=== PATIENT | female | born 1960 | race Caucasian/White ===

== ENCOUNTER 2022-06-23 08:26 | Outpatient (CLI) | payer BC, SELFPAY ==
[2022-06-23 12:02] LABS: Chloride* 104 mmol/L (96-114); Sodium* 143 mmol/L (135-149)
[2022-06-23 12:05] LABS: Carbon Dioxide* 31 mmol/L (20-32); Cholesterol* 182 mg/dL (90-199); Creatinine* 0.9 mg/dL (0.5-1.5); Estimated Glomerular Filt Rate 72 ml/min
[2022-06-23 12:06] LABS: Blood Urea Nitrogen* 18 mg/dL (7-30); Calcium* 8.9 mg/dL (8.4-10.6); Glucose* 124 mg/dL (60-115); HDL Cholesterol* 62 mg/dL (>=50); LDL Cholesterol Calculated 88 mg/dL (<100); Triglycerides* 160 mg/dL (40-149)
[2022-06-23 12:34] LABS: TSH With Reflex to FT4* 0.138 uIU/mL (0.270-4.200)
[2022-06-23 13:06] LABS: Free T4 Free Thyroxine* 2.61 ng/dL (0.70-1.85)
== END 2022-06-23 08:27 | disposition home or self-care (01) ==
PROVIDERS: Visit Provider Obstetrics & Gynecology
DX: Z01.419 Encounter for gynecological examination (general) (routine) without abnormal findings (principal); N95.0 Postmenopausal bleeding; R53.83 Other fatigue; I10 Essential (primary) hypertension; E83.51 Hypocalcemia; E55.9 Vitamin D deficiency, unspecified; E78.00 Pure hypercholesterolemia, unspecified
CPT/HCPCS: 80048; 80061; 84439; 84443

== ENCOUNTER 2022-06-30 08:23 | Outpatient (CLI) | payer BC, SELFPAY ==
--- NOTE | 2022-06-30 08:45 | CRLHL7_ITS ---
For Patients: As a result of the Century Cures Act, medical imaging exams and procedure reports are released immediately into your electronic medical record. You may view this report before your referring provider. If you have questions, please contact your health care provider. Indication : Postmenopausal bleeding Technique: Sonography of the pelvis was performed. Imaging was performed transvaginally Comparison: None Findings: The uterus measures 6.2 x 2.0 x 2.4 centimeters which is normal. No myometrial mass. The endometrium measures 2 millimeters. This is a normal measurement. It is homogeneous in appearance without focal mass. The ovaries are not visible. However, there was no visible adnexal mass. No free fluid in the cul-de-sac. Impression: Normal appearing uterus. Endometrium normal in appearance and caliber at 2 millimeters. The specific cause of the patient`s postmenopausal bleeding is not determined on this exam. Ovaries not visualized. Dictated by Juan Nolen MD @ 06/30/2022 9:27:24 AM (Electronically Signed)
== END 2022-06-30 08:24 | disposition home or self-care (01) ==
LOC: US 08:24
PROVIDERS: PCP Family Medicine; Visit Provider Obstetrics & Gynecology
DX: N95.0 Postmenopausal bleeding (principal)
CPT/HCPCS: 76830

== ENCOUNTER 2023-04-19 14:10 | Outpatient (CLI) | payer BC, SELFPAY ==
--- NOTE | 2023-04-19 14:40 | CRLHL7_ITS ---
For Patients: As a result of the Century Cures Act, medical imaging exams and procedure reports are released immediately into your electronic medical record. You may view this report before your referring provider. If you have questions, please contact your health care provider. BILATERAL SCREENING MAMMOGRAM WITH COMPUTER-AIDED DETECTION AND TOMOSYNTHESIS TECHNIQUE: CC and MLO views were obtained. These mammographic images have been obtained using full-field digital technique. These mammographic images were interpreted with the benefit of computer-aided detection. Breast tomosynthesis was used in this interpretation. COMPARISON FILM: 03/24/21, 02/05/20, 01/31/19. FINDINGS: There are scattered areas of fibroglandular density. IMPRESSION: There is no radiographic evidence for malignancy. ASSESSMENT: BI-RADS Category 2: Benign RECOMMENDATION: Routine screening mammogram in 1 year. A lay language report of this examination will be provided to the patient. FOREIGN NAVARRO M.D. Diagnostic Radiologist [email or web address] Transcribed: 04/26/2023, 2:[address]/Dictated by: Foreign Navarro MD @ 04/26/2023 9:36:00 AM (Electronically Signed)
== END 2023-04-19 14:11 | disposition home or self-care (01) ==
PROVIDERS: PCP Family Medicine; Visit Provider Obstetrics & Gynecology
DX: Z12.31 Encounter for screening mammogram for malignant neoplasm of breast (principal)
CPT/HCPCS: 77063; 77067

== ENCOUNTER 2023-07-19 16:59 | Emergency (ER) | payer BC, MEDICARE, SELFPAY ==
[2023-07-19 17:03] VITALS: BP 118/75; PULSE 110; RESP 18; TEMP 36.7; O2SAT 96; BMI 25.8
--- NOTE | 2023-07-19 17:49 | ED_ITS ---
HPI - General Adult General Date Seen: 07/19/23 Chief complaint: Laceration/Wound Stated complaint: L hip replaced, possible infection on incision Time Seen by Provider: 07/19/23 17:15 Source: patient, RN notes reviewed and old records reviewed Mode of arrival: ambulatory Limitations: no limitations History of Present Illness HPI narrative: Patient is a 62-year-old woman had had surgery on her left hip on June 13 at [place]. She comes in today for evaluation of her incision. She says she has been doing well, the wound VAC was removed, she has been driving for the past few days. She does not really have pain around the incision but she said her told her that it looks ?really red. She is concerned about possible infection. She has not had any fevers, otherwise getting around okay. She has home physical therapy coming on. Related Data Home Medications Medication Instructions Recorded Confirmed atenolol 100 mg tablet 100 mg PO 06/23/22 06/30/22 azathioprine 50 mg tablet (Imuran) 50 mg PO QDAY 06/23/22 06/30/22 celecoxib 200 mg capsule 200 mg PO BID 06/23/22 06/30/22 cevimeline 30 mg capsule 60 mg PO BID 06/23/22 06/30/22 cholecalciferol (vitamin D3) 25 3,000 unit PO .Bedtime 06/23/22 06/30/22 mcg (1,000 unit) tablet cyclobenzaprine 10 mg tablet 20 mg PO .Bedtime as needed PRN 06/23/22 06/30/22 doxazosin 8 mg tablet 8 mg PO .Bedtime 06/23/22 06/30/22 gabapentin 300 mg capsule 600 mg PO .Bedtime PRN 06/23/22 06/30/22 glimepiride 1 mg tablet 1 mg PO QAM 06/23/22 06/30/22 levothyroxine 150 mcg tablet 150 mcg PO 06/23/22 06/30/22 levothyroxine 175 mcg tablet 175 mcg PO 06/23/22 06/30/22 loratadine 10 mg tablet (Claritin) 10 mg PO QDAY 06/23/22 06/30/22 pantoprazole 20 mg tablet,delayed 20 mg PO QDAY 06/23/22 06/30/22 release pravastatin 40 mg tablet 40 mg PO .Bedtime 06/23/22 06/30/22 ropinirole 0.25 mg tablet 0.25 mg PO BID 06/23/22 06/30/22 tramadol 50 mg tablet 1 mg PO .Bedtime 06/23/22 06/30/22 prednisone 20 mg tablet 5 mg PO 06/30/22 06/30/22 Allergies Allergy/AdvReac Type Severity Reaction Status Date / Time metformin Allergy Intermediate Verified 07/19/23 17:09 aspirin Allergy Mild swelling, Verified 06/30/22 09:50 difficulty breathing erythromycin base Allergy Mild rash, Verified 06/30/22 09:50 breathing problems lisinopril Allergy Mild Cough Verified 06/30/22 09:50 diltiazem Allergy Unknown Verified 06/30/22 09:50 PFSH PFS Medical History Gastroenteritis History of endometriosis History of herpes zoster History of oral contraceptive use History of pneumonia History of renal calculi 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 Lesion of labia Nulliparity Pericardial effusion Urinary tract infection Surgical History History of arthroscopic surgery of shoulder History of bilateral breast reduction surgery (1998) History of breast biopsy (2001) History of cholecystectomy (2005) History of colonoscopy (2005) History of discectomy (1997) History of esophagogastroduodenoscopy (EGD) (2007) History of eye surgery (2004) History of foot surgery History of joint surgery History of lithotripsy History of local excision of skin lesion History of surgical procedure History of thyroid surgery (2017) Family History Brother Allergies High cholesterol Mother Breast cancer Diabetes Factor V Leiden mutation Heart disease Melanoma Retinal detachment Sister Breast cancer Heart disease High cholesterol Ovarian cancer Family/Other Diabetes High blood pressure Father Heart disease Stroke Social History Narrative: Gluten free diet Smoking Status: Never smoker Little interest or pleasure in doing things: several days Feeling down, depressed, or hopeless: not at all Exam Narrative: Exam Narrative: Vital signs reviewed In general, alert, well-appearing woman. She is mobile without difficulty. Skin: She has well-healed incision noted on the left hip. I do not see any evidence of infection. She has a small area of erythema, less than a cm, which may represent a tiny developing stitch abscess but there is no drainage right now. The rest of the incision looks perfect. She has no tenderness, fluctuance, or warmth. Const: Vital Signs, click to edit/add: Vital Signs - 24 hr 07/19/23 17:03 Temperature 98.1 F Pulse Rate [Pulse Oximeter] 110 H Respiratory Rate 18 Blood Pressure [Ri ght Upper Arm] 118/75 Pulse Oximetry 96 Oxygen Delivery Me thod Room Air Documenting provider has reviewed patient's vital signs: yes Course Course ED Course: Discussed with her that at this time and the incision looks great to me. I do not think she needs antibiotics. I would recommend that she keep an eye on that tiny area of erythema and if it progresses into a large area of erythema she should be seen again. Otherwise, she has follow-up on July 28 with her surgeon which should be adequate. Vital Signs Vital signs: Initial Vital Signs Temperature 98.1 F 07/19/23 17:03 Temperature Source Temporal Artery Scan 07/19/23 17:03 Pulse Rate 110 H 07/19/23 17:03 Respiratory Rate 18 07/19/23 17:03 Blood Pressure 118/75 07/19/23 17:03 Blood Pressure Mean 89 07/19/23 17:03 Blood Pressure Position Sitting 07/19/23 17:03 Pulse Oximetry 96 07/19/23 17:03 Oxygen Delivery Method Room Air 07/19/23 17:03 Vital Signs Temperature 98.1 F 07/19/23 17:03 Pulse Rate 110 H 07/19/23 17:03 Respiratory Rate 18 07/19/23 17:03 Blood Pressure 118/75 07/19/23 17:03 Pulse Oximetry 96 07/19/23 17:03 Oxygen Delivery Method Room Air 07/19/23 17:03 Temperature 98.1 F 07/19/23 17:03 Pulse Rate 110 H 07/19/23 17:03 Respiratory Rate 18 07/19/23 17:03 Blood Pressure 118/75 07/19/23 17:03 Pulse Oximetry 96 07/19/23 17:03 Oxygen Delivery Method Room Air 07/19/23 17:03 Discharge Plan Discharge Clinical Impression: Visit for wound check Patient Disposition: Home, Self-Care Condition: Stable Additional Instructions: If you have significant increasing area of redness, swelling, drainage or pain, wound should be reassessed. Otherwise follow up next week as you planned. Prescriptions: No Action atenolol 100 mg tablet 100 mg PO Patient Comments: TAKE 1 TABLET BY MOUTH ONCE DAILY cholecalciferol (vitamin D3) 25 mcg (1,000 unit) tablet 3,000 unit PO .Bedtime gabapentin 300 mg capsule 600 mg PO .Bedtime PRN tramadol 50 mg tablet 1 mg PO .Bedtime cevimeline 30 mg capsule 60 mg PO BID pravastatin 40 mg tablet 40 mg PO .Bedtime ropinirole 0.25 mg tablet 0.25 mg PO BID levothyroxine 175 mcg tablet 175 mcg PO Patient Comments: TAKE 1 TABLET BY MOUTH 6 DAYS A WEEK (ALTERNATING WITH 150 MCG TABLET) celecoxib 200 mg capsule 200 mg PO BID loratadine [Claritin] 10 mg tablet 10 mg PO QDAY cyclobenzaprine 10 mg tablet 20 mg PO .Bedtime as needed PRN pantoprazole 20 mg tablet,delayed release (DR/EC) 20 mg PO QDAY doxazosin 8 mg tablet 8 mg PO .Bedtime glimepiride 1 mg tablet 1 mg PO QAM Rx Instructions: administer with breakfast levothyroxine 150 mcg tablet 150 mcg PO Patient Comments: TAKE 1 TABLET BY MOUTH TWICE PER WEEK, ON TUESDAYS AND THURSDAYS. azathioprine [Imuran] 50 mg tablet 50 mg PO QDAY prednisone 20 mg tablet 5 mg PO Patient Comments: TAKE TWO TABLETS BY MOUTH EVERY DAY WITH A MEAL FOR 5 DAYS Follow Up/Referrals: Lucas Granda MD [Primary Care Provider] - Stand Alone Forms: [employer] Info Instructions
--- NOTE | 2023-07-19 17:51 | ED.NURSE ---
Unable to completely assess pt wound. Pt assessed and cleared by MD to discharge.
== END 2023-07-19 17:52 | disposition home or self-care (01) ==
LOC: ED 17:45
PROVIDERS: Emergency Provider Emergency Medicine; PCP Family Medicine
DX: Z48.89 Encounter for other specified surgical aftercare (principal)
CPT/HCPCS: 99282; 99283

== ENCOUNTER 2023-08-04 14:48 | Emergency (ER) | payer BC, MEDICARE, SELFPAY ==
[2023-08-04 15:02] VITALS: BP 110/72; PULSE 112; RESP 16; TEMP 36.5; O2SAT 96; BMI 25.8
--- NOTE | 2023-08-04 15:37 | ED.NAVMDI ---
HPI - Nausea/Vomiting/Diarrhea General Date Seen: 08/04/23 Chief complaint: Nausea/Vomiting Stated complaint: Vomiting post hip replacement Time Seen by Provider: 08/04/23 15:19 Source: patient Mode of arrival: ambulatory Limitations: no limitations History of Present Illness HPI Narrative: Patient is 63-year-old female with a recent hip replacement presenting to the emergency department for nausea and vomiting. She had her hip replaced and then developed infection. Needed it redone which was performed on July 24. Since then she has been on IV antibiotics. She has a midline in place. Over the past 3 days every time she gets the IV antibiotic she vomits. States past only time she gets nauseated in the only time she vomits. Otherwise she is eating and drinking without issues. Got the IV antibiotics twice today and vomited each time with them. Has not been taking any nausea medicine at home. Has been eating and drinking without issue. Denies any abdominal pain. Also states her hip is also currently pain free. States she otherwise is doing well at the vomiting. She spoke to her doctor and was told to come to emergency department for some fluids and to get her electrolytes checked. Denies headaches, vision changes, lightheadedness, weakness, dizziness, abdominal pain, chest pain, shortness of breath. Related Data Home Medications Medication Instructions Recorded Confirmed azathioprine 50 mg tablet (Imuran) 50 mg PO QDAY 06/23/22 08/04/23 celecoxib 200 mg capsule 200 mg PO BID 06/23/22 08/04/23 cevimeline 30 mg capsule 60 mg PO BID 06/23/22 08/04/23 cholecalciferol (vitamin D3) 25 3,000 unit PO .Bedtime 06/23/22 08/04/23 mcg (1,000 unit) tablet cyclobenzaprine 10 mg tablet 10 mg PO .Bedtime as needed PRN 06/23/22 08/04/23 doxazosin 8 mg tablet 8 mg PO .Bedtime 06/23/22 08/04/23 gabapentin 300 mg capsule 600 mg PO .Bedtime PRN 06/23/22 08/04/23 glimepiride 1 mg tablet 1 mg PO QAM 06/23/22 08/04/23 levothyroxine 150 mcg tablet 150 mcg PO 06/23/22 06/30/22 levothyroxine 175 mcg tablet 175 mcg PO 06/23/22 06/30/22 loratadine 10 mg tablet (Claritin) 10 mg PO QDAY 06/23/22 08/04/23 pantoprazole 20 mg tablet,delayed 20 mg PO QDAY 06/23/22 08/04/23 release pravastatin 40 mg tablet 40 mg PO .Bedtime 06/23/22 08/04/23 ropinirole 0.25 mg tablet 0.25 mg PO BID 06/23/22 08/04/23 apixaban 2.5 mg tablet (Eliquis) 2.5 mg PO BID 08/04/23 08/04/23 cefazolin 2 gram solution for 2 g IV Q8H 08/04/23 08/04/23 injection Previous Rx's Medication Instructions Recorded ondansetron 4 mg disintegrating 4 mg PO Q6H #20 tabs 08/04/23 tablet Allergies Allergy/AdvReac Type Severity Reaction Status Date / Time metformin Allergy Intermediate Verified 07/19/23 17:09 aspirin Allergy Mild swelling, Verified 06/30/22 09:50 difficulty breathing erythromycin base Allergy Mild rash, Verified 06/30/22 09:50 breathing problems lisinopril Allergy Mild Cough Verified 06/30/22 09:50 diltiazem Allergy Unknown Verified 06/30/22 09:50 Review of Systems Status of ROS: Reports: 10 or more systems reviewed and unremarkable except as noted in History and below [facility] Medical History Urinary tract infection ?N39.0 - Urinary tract infection, site not specified (ICD-10) Pericardial effusion ?I31.39 - Other pericardial effusion (noninflammatory) (ICD-10) Nulliparity Lesion of labia ?N90.89 - Other specified noninflammatory disorders of vulva and perineum (ICD-10) Insufficiency of lacrimal sac ?H04.129 - Dry eye syndrome of unspecified lacrimal gland (ICD-10) Impingement syndrome of left shoulder ?M75.42 - Impingement syndrome of left shoulder (ICD-10) History of renal calculi ?Z87.442 - Personal history of urinary calculi (ICD-10) History of pneumonia ?Z87.01 - Personal history of pneumonia (recurrent) (ICD-10) History of oral contraceptive use ?Z92.0 - Personal history of contraception (ICD-10) History of herpes zoster ?Z86.19 - Personal history of other infectious and parasitic diseases (ICD-10) History of endometriosis ?Z87.42 - Personal history of other diseases of the female genital tract (ICD-10) Gastroenteritis ?K52.9 - Noninfective gastroenteritis and colitis, unspecified (ICD-10) Surgical History History of thyroid surgery (2017) ?Z98.890 - Other specified postprocedural states (ICD-10) History of surgical procedure ?Z98.890 - Other specified postprocedural states (ICD-10) History of local excision of skin lesion ?Z98.890 - Other specified postprocedural states (ICD-10) History of lithotripsy ?Z98.890 - Other specified postprocedural states (ICD-10) History of joint surgery ?Z98.890 - Other specified postprocedural states (ICD-10) History of foot surgery ?Z98.890 - Other specified postprocedural states (ICD-10) History of eye surgery (2004) ?Z98.890 - Other specified postprocedural states (ICD-10) History of esophagogastroduodenoscopy (EGD) (2007) ?Z98.890 - Other specified postprocedural states (ICD-10) History of discectomy (1997) ?Z98.890 - Other specified postprocedural states (ICD-10) History of colonoscopy (2005) ?Z98.890 - Other specified postprocedural states (ICD-10) History of cholecystectomy (2005) ?Z90.49 - Acquired absence of other specified parts of digestive tract (ICD-10) History of breast biopsy (2001) ?Z98.890 - Other specified postprocedural states (ICD-10) History of bilateral breast reduction surgery (1998) ?Z98.890 - Other specified postprocedural states (ICD-10) History of arthroscopic surgery of shoulder ?Z98.890 - Other specified postprocedural states (ICD-10) Family History Brother Allergies High cholesterol Mother Breast cancer Diabetes Factor V Leiden mutation Heart disease Melanoma Retinal detachment Sister Breast cancer Heart disease High cholesterol Ovarian cancer Family/Other Diabetes High blood pressure Father Heart disease Stroke Social History Narrative: Gluten free diet Smoking Status: Never smoker Second hand tobacco smoke exposure: No How often do you have a drink containing alcohol: never How often do you have six or more drinks on one occasion: Never AUDIT-C Alcohol total score: 0 Non-prescribed substance use: denies use Little interest or pleasure in doing things: several days Feeling down, depressed, or hopeless: not at all service: No Exam Narrative: Exam Narrative: Const: Well-nourished, Well-developed, in no distress Eyes: PERRL, no conjunctival injection, and symmetrical lids HENT: Atraumatic external nose and ears. Moist mucous membranes. Neck: Symmetric, trachea midline, No thyromegaly. CVS: RRR, No murmurs or gallops. Peripheral pulses 2+ and equal in all extremities RESP: Unlabored respiratory effort. Clear to auscultation bilaterally. GI: Nontender/Nondistended, No rebound or guarding. MSK:Extremities w/o deformity, Normal Active ROM Skin: Warm, Dry. No rashes or lesions. Neuro: Normal Muscle tone, No focal neurological deficits. Psych: Awake, Alert, & Oriented x3. Appropriate mood and affect. Const: Vital Signs, click to edit/add: Vital Signs - 24 hr 08/04/23 15:02 Temperature 97.7 F Pulse Rate [Pulse Oximeter] 112 H Respiratory Rate 16 Blood Pressure [Ri ght Upper Arm] 110/72 Pulse Oximetry 96 Oxygen Delivery Me thod Room Air Course Vital Signs Vital signs: Initial Vital Signs Temperature 97.7 F 08/04/23 15:02 Temperature Source Temporal Artery Scan 08/04/23 15:02 Pulse Rate 112 H 08/04/23 15:02 Respiratory Rate 16 08/04/23 15:02 Blood Pressure 110/72 08/04/23 15:02 Blood Pressure Mean 84 08/04/23 15:02 Blood Pressure Position Sitting 08/04/23 15:02 Pulse Oximetry 96 08/04/23 15:02 Oxygen Delivery Method Room Air 08/04/23 15:02 Vital Signs Temperature 97.7 F 08/04/23 15:02 Pulse Rate 112 H 08/04/23 15:02 Respiratory Rate 16 08/04/23 15:02 Blood Pressure 110/72 08/04/23 15:02 Pulse Oximetry 96 08/04/23 15:02 Oxygen Delivery Method Room Air 08/04/23 15:02 Temperature 97.7 F 08/04/23 15:02 Pulse Rate 112 H 08/04/23 15:02 Respiratory Rate 16 08/04/23 15:02 Blood Pressure 110/72 08/04/23 15:02 Pulse Oximetry 96 08/04/23 15:02 Oxygen Delivery Method Room Air 08/04/23 15:02 Medications Administered Medications: Generic Name Dose Route Start Last Admin Trade Name Freq PRN Reason Stop Dose Admin Lactated Ringer's 1,000 mls @ 1,000 mls/hr 08/04/23 15:27 08/04/23 16:16 Lactated Ringers 1000 Ml IV 08/04/23 16:26 1,000 mls/hr .Q1H ONE Administration MDM - Nausea/Vomiting/Diarrhea MDM Narrative Medical decision making narrative: Patient is 63-year-old female presenting for nausea. The nausea only occurs when she gets her antibiotic. Antibiotic is cefazolin. She gets it 3 times a day. Last had it today at 14:00. She states she otherwise feels asymptomatic. She does states she feels dehydrated so L fluids will be given. Was her CBC and BMP in magnesium. As she is not having any abdominal pain and the symptoms only occur when she takes the antibiotic I believe that is most likely the cause of her nausea and vomiting. I do not believe further imaging is necessary at this time as she is having no other abdominal symptoms. Also do not think this is viral related as again the symptoms occur every time she gets the antibiotic. She does have a dressing covering her wound which she says is checked every Tuesday. States protime is been checked this the tube well. Concerning there is a clean infective dressing over it this time around not believe is necessary to take this off. Patient is in agreement. CBC showed no concerning findings. Her BMP return with potassium 2.7. This is likely from the vomiting. She does state previous her potassium was in the low 3 range on Tuesday. She cannot remember the exact number. Does states she is having repeat lab work done on Tuesday and was initially supposed to have her electrolytes rechecked tomorrow but they push that back until Tuesday. She is otherwise feeling asymptomatic at this time. I will replenish her potassium. I do not believe this is something that requires admission. She will be discharged home with Zofran. I informed her that if she takes the Zofran and then still vomits tonight should call her primary care doctor in the morning to recheck her potassium tomorrow as written a scheduled. She is agreeable with this plan. Lab Data Labs: Lab Results 08/04/23 Range/Units 15:50 WBC 8.62 (4.50-11.00) K/uL RBC 3.72 L (4.00-5.20) m/uL Hgb 10.6 L (12.0-16.0) gm/dL Hct 31.7 L (33.0-51.0) % MCV 85 (80-100) fL MCH 29 (26-34) pg MCHC 33 (32-36) gm/dL RDW Coeff of Gavi 14.5 (11.5-15.5) % Plt Count 303 (140-440) K/uL Neut % (Auto) 65.6 (42.0-72.0) % Lymph % (Auto) 16.6 L (20-44) % [place] % (Auto) 11.5 H (0.0-11.0) % Eos % (Auto) 5.9 (0.0-7.0) % Baso % (Auto) 0.3 (0.0-3.0) % Neut # (Auto) 5.65 (1.7-7.0) K/uL Lymph # (Auto) 1.40 (0.90-2.90) K/uL [place] # (Auto) 1.00 H (0.00-0.90) K/UL Eos # (Auto) 0.51 H (0.00-0.50) K/uL Baso # (Auto) 0.03 (0.00-0.30) K/uL Abs Immat Gran (auto) 0.01 (0.00-0.30) K/uL Imm/Tot Granulo (auto) 0.1 % Sodium 137 (135-149) mmol/L Potassium 2.7 L* (3.6-5.1) mmol/L Chloride 99 (96-114) mmol/L Carbon Dioxide 31 (20-32) mmol/L Anion Gap 7 (7-15) mEq/L BUN 11 (7-30) mg/dL Creatinine 0.6 (0.5-1.5) mg/dL Estimated Creat Clear 52.51 Estimated GFR 100 ml/min Glucose 126 H (60-115) mg/dL Calcium 9.3 (8.4-10.6) mg/dL Magnesium 1.5 (1.5-2.6) mg/dL Discharge Plan Discharge Clinical Impression: Increased nausea and vomiting, Acute hypokalemia Patient Disposition: Home, Self-Care Condition: Stable Instructions: Potassium Content of Foods List (ED), Hypokalemia (ED) Additional Instructions: Take the Zofran about 15-20 minutes prior to getting the cefazolin. If you still vomit call your primary care provider in the morning to have them recheck your potassium. If you are able to get through the infusion without vomiting year okay to wait until Tuesday for the recheck. Take the Zofran prior to every infusion and inform your primary care provider that your taking it. Prescriptions: New ondansetron 4 mg tablet,disintegrating 4 mg PO Q6H Qty: 20 0RF No Action cholecalciferol (vitamin D3) 25 mcg (1,000 unit) tablet 3,000 unit PO .Bedtime gabapentin 300 mg capsule 600 mg PO .Bedtime PRN cevimeline 30 mg capsule 60 mg PO BID pravastatin 40 mg tablet 40 mg PO .Bedtime ropinirole 0.25 mg tablet 0.25 mg PO BID levothyroxine 175 mcg tablet 175 mcg PO Patient Comments: TAKE 1 TABLET BY MOUTH 4 DAYS A WEEK (ALTERNATING WITH 150 MCG TABLET) celecoxib 200 mg capsule 200 mg PO BID loratadine [Claritin] 10 mg tablet 10 mg PO QDAY cyclobenzaprine 10 mg tablet 10 mg PO .Bedtime as needed PRN pantoprazole 20 mg tablet,delayed release (DR/EC) 20 mg PO QDAY doxazosin 8 mg tablet 8 mg PO .Bedtime glimepiride 1 mg tablet 1 mg PO QAM Rx Instructions: administer with breakfast levothyroxine 150 mcg tablet 150 mcg PO Patient Comments: TAKE 1 TABLET BY MOUTH THREE TIMES PER WEEK azathioprine [Imuran] 50 mg tablet 50 mg PO QDAY Eliquis 2.5 mg tablet 2.5 mg PO BID Hold Instructions: stopped by [employer] ALVAREZ cefazolin 2 gram recon soln 2 g IV Q8H Follow Up/Referrals: Lucas Granda MD [Primary Care Provider] - Stand Alone Forms: [employer] Info Instructions
[2023-08-04 15:56] LABS: Basophils Absolute Auto 0.03 K/uL (0.00-0.30); Basophils Percent Auto 0.3 % (0.0-3.0); Eosinophils Absolute Auto 0.51 K/uL (0.00-0.50); Eosinophils Percent Auto 5.9 % (0.0-7.0); Hematocrit 31.7 % (33.0-51.0); Hemoglobin* 10.6 gm/dL (12.0-16.0); Immature Granulocytes Abs Auto 0.01 K/uL (0.00-0.30); Immature Granulocytes Pct Auto 0.1 %; Lymphocytes Percent Auto 16.6 % (20-44); Mean Corpuscular HGB Conc 33 gm/dL (32-36); Mean Corpuscular Hemoglobin 29 pg (26-34); Mean Corpuscular Volume 85 fL (80-100); Monocytes Percent Auto 11.5 % (0.0-11.0); Neutrophils Absolute Auto 5.65 K/uL (1.7-7.0); Neutrophils Percent Auto 65.6 % (42.0-72.0); Platelet Count* 303 K/uL (140-440); RDW Coefficient of Variation % 14.5 % (11.5-15.5); Red Blood Count 3.72 m/uL (4.00-5.20); White Blood Count* 8.62 K/uL (4.50-11.00)
[2023-08-04 16:00] LABS: Slide Review Reflex No
[2023-08-04 16:12] LABS: Blood Urea Nitrogen* 11 mg/dL (7-30); Calcium* 9.3 mg/dL (8.4-10.6); Carbon Dioxide* 31 mmol/L (20-32); Creatinine* 0.6 mg/dL (0.5-1.5); Est. Creatinine Clearance* 52.51; Estimated Glomerular Filt Rate 100 ml/min; Glucose* 126 mg/dL (60-115)
[2023-08-04 16:13] LABS: Magnesium* 1.5 mg/dL (1.5-2.6); Potassium* 2.7 mmol/L (3.6-5.1)
[2023-08-04 16:16] LABS: Anion Gap 7 mEq/L (7-15); Chloride* 99 mmol/L (96-114); Sodium* 137 mmol/L (135-149)
[2023-08-04] MEDS: LACTATED RINGERS 1000 ML 1,000 ML IV (16:16)
[2023-08-04] MEDS: POTASSIUM CHLORIDE 10 MEQ CAPSULE ER 40 MEQ PO (16:38)
[2023-08-04] MEDS: HEPARIN 500 UNIT/5 ML SYRINGE IVF (17:30)
== END 2023-08-04 17:45 | disposition home or self-care (01) ==
PROVIDERS: Emergency Provider Student in an Organized Health Care Education/Training Program; PCP Family Medicine
DX: R11.2 Nausea with vomiting, unspecified (principal); E87.6 Hypokalemia
CPT/HCPCS: 36415; 80048; 83735; 85025; 99282; 99283; 99284; A9270; J1642; J7120